=== PATIENT | female | born 1950 | race Caucasian/White ===

== ENCOUNTER 2022-01-09 17:37 | Emergency (ER) | payer OTHER ==
[~2022-01-09] VITALS: Ht 160 cm; Wt 63.5 kg
[~2022-01-09 17:37] MED LIST: ALBMDI INH; LEVO500T20 PO
[2022-01-09 18:06] VITALS: BP_SYST 123
[2022-01-09 18:55] LABS: BASOPHILS # (AUTO) 0.2 K/uL (0.0-0.2); BASOPHILS % (AUTO) 1.1 % (0.0-2.0); EOSINOPHILS # (AUTO) 0.2 K/uL (0.0-0.4); EOSINOPHILS % (AUTO) 1.5 % (0.0-4.0); HEMATOCRIT 23.9 % (36-48); HEMOGLOBIN 7.6 g/dL (12.0-16.0); LYMPHOCYTES # (AUTO) 3.3 K/uL (1.0-5.5); LYMPHOCYTES % (AUTO) 23.2 % (20.5-51.5); MEAN CORPUSCULAR HEMOGLOBIN 26 pg (27-31); MEAN CORPUSCULAR HGB CONC 32 % (32-36); MEAN CORPUSCULAR VOLUME 82 fL (79.0-98.0); MONOCYTES # (AUTO) 0.7 K/uL (0.0-1.0); MONOCYTES % (AUTO) 4.7 % (1.7-9.3); NEUTROPHILS # (AUTO) 9.8 K/uL (1.8-7.7); NEUTROPHILS % (AUTO) 69.5 % (40.0-70.0); PLATELET COUNT (AUTO) 313 K/uL (130-430); RED BLOOD CELL COUNT(AUTO) 2.92 MIL/uL (4.2-6.2); RED CELL DISTRIBUTION WIDTH 14.2 % (9.0-15.0); WHITE BLOOD COUNT (AUTO) 14.1 K/uL (4.8-10.8)
[2022-01-09 19:22] LABS: ANION GAP 11 (5-15); CALCIUM 9.3 mg/dL (8.4-11.0); CHLORIDE 98 mmol/L (98-107); CREATININE 1.38 mg/dL (0.55-1.30); GLUCOSE 191 mg/dL (70-99); POTASSIUM 4.9 mmol/L (3.5-5.1); SODIUM SERUM 136 mmol/L (136-145); UREA NITROGEN, BLOOD 43 mg/dL (8-21)
[2022-01-09 19:37] LABS: ALANINE AMINOTRANSFERASE 12 U/L (12-78); ALBUMIN 3.1 g/dL (3.4-4.8); ASPARTATE AMINOTRANSFERASE 20 U/L (10-37); TOTAL BILIRUBIN 0.4 mg/dL (0.0-1.0)
--- NOTE | 2022-01-09 20:15 | NUR ---
PT PLACED ON [employer]OUS [employer]CTION [employer]IST; HERE FOR GENERALIZED WEAKNESS X3 DAYS. LABS DRAWN. LACTIC 4.3; MD AWARE. NEW ORDERS GIVEN AND CARRIED OUT. VSS WCTM
[2022-01-09] MEDS ORDERED: NACL 0.9% 1,000 ML IV ONE (20:30)
--- NOTE | 2022-01-09 20:35 | NUR ---
Dr. Jauregui at bedside.
[2022-01-09 20:45] LABS: ACETONE, SERUM NEGATIVE (NEGATIVE)
[2022-01-09 20:50] LABS: BILIRUBIN,URINE NEGATIVE (NEGATIVE); BLOOD, URINE NEGATIVE (NEGATIVE); CLARITY/URINE CLEAR (CLEAR); COLOR,URINE YELLOW (YELLOW); GLUCOSE,URINE 3+ (NEGATIVE); KETONES,URINE NEGATIVE (NEGATIVE); LEUKOCYTE ESTERASE ,URINE 1+ (NEGATIVE); NITRITE, URINE NEGATIVE (NEGATIVE); PROTEIN URINE NEGATIVE (NEGATIVE); UROBILINOGEN,URINE 0.2 (0.2-1.0)
[2022-01-09] MEDS ORDERED: NITR-85 PO (21:06)
[2022-01-09] MEDS ORDERED: cefTRIAXone 1 GM in D5W 50 ML IV ONE (21:15)
[2022-01-09 21:16] LABS: BACTERIA,URINE MODERATE /HPF (None Seen); RBC,URINE 0-3 /HPF (0-3)
[2022-01-09] MEDS ORDERED: cefTRIAXone 1 GM VIAL ONE (21:27)
[2022-01-09] MEDS ORDERED: FERR236T3 PO (21:46)
--- NOTE | 2022-01-09 21:57 | NUR ---
abx infusing. blood cultures collected prior
[2022-01-09 23:00] VITALS: BP_SYST 130
--- NOTE | 2022-01-09 23:00 | NUR ---
Patient given written and verbal discharge instructions and verbalizes understanding. ER MD discussed with patient the results and treatment provided. Patient in stable condition. ID arm band removed. IV catheter removed intact and dressing applied, no active bleeding. Rx of Macrobid and Ferrous Gluconate given. Patient educated on pain management and to follow up with PMD. Pain Scale 0/10. Opportunity for questions provided and answered. Medication side effect fact sheet provided.
--- NOTE | 2022-01-09 23:22 | NUR ---
Patient given written and verbal discharge instructions and verbalizes understanding. ER MD discussed with patient the results and treatment provided. Patient in stable condition. ID arm band removed. IV catheter removed intact and dressing applied, no active bleeding. Rx of iron given. Patient educated on pain management and to follow up with PMD. Pain Scale 0. Opportunity for questions provided and answered. Medication side effect fact sheet provided.
[2022-01-12] MEDS ORDERED: SIMV-343 PO (12:50)
[2022-01-14] MEDS ORDERED: LEVO-62 PO (10:07)
== END 2022-01-09 23:22 | disposition home or self-care (01) ==
LOC: SED 17:37
DX: R53.1 Weakness (principal); N39.0 Urinary tract infection, site not specified; R42 Dizziness and giddiness; R51.9 Headache, unspecified; E11.9 Type 2 diabetes mellitus without complications; I10 Essential (primary) hypertension; Z79.899 Other long term (current) drug therapy
CPT/HCPCS: 99285; 96365; 70450; 71045; 96361; 80053; 81000; 82009; 82550; 82962; 85025; 87040; 87086; 36415; 93005; 76376; 83605; J0696; J7030

== ENCOUNTER 2022-01-11 13:16 | Inpatient (IN) | payer OTHER ==
[~2022-01-11] VITALS: Ht 160 cm; Wt 64.4 kg
[~2022-01-11 13:16] MED LIST changes: +FERR236T3 PO; +NITR-85 PO
[2022-01-11 13:39] VITALS: BP_SYST 132
[2022-01-11 14:38] LABS: BASOPHILS # (AUTO) 0.1 K/uL (0.0-0.2); BASOPHILS % (AUTO) 0.9 % (0.0-2.0); EOSINOPHILS # (AUTO) 0.1 K/uL (0.0-0.4); MONOCYTES # (AUTO) 0.4 K/uL (0.0-1.0)
[2022-01-11 14:45] LABS: ANION GAP 10 (5-15); CALCIUM 9.3 mg/dL (8.4-11.0); CHLORIDE 107 mmol/L (98-107); CREATININE 1.26 mg/dL (0.55-1.30); GLUCOSE 172 mg/dL (70-99); SODIUM SERUM 139 mmol/L (136-145); UREA NITROGEN, BLOOD 26 mg/dL (8-21)
[2022-01-11 14:50] LABS: ALANINE AMINOTRANSFERASE 13 U/L (12-78); ALBUMIN 3.1 g/dL (3.4-4.8); ASPARTATE AMINOTRANSFERASE 29 U/L (10-37); EOSINOPHILS % (AUTO) 1.5 % (0.0-4.0); LYMPHOCYTES % (AUTO) 24.2 % (20.5-51.5); MEAN CORPUSCULAR HEMOGLOBIN 26 pg (27-31); MEAN CORPUSCULAR HGB CONC 32 % (32-36); MEAN CORPUSCULAR VOLUME 82 fL (79.0-98.0); MONOCYTES % (AUTO) 5.2 % (1.7-9.3); NEUTROPHILS # (AUTO) 5.5 K/uL (1.8-7.7); NEUTROPHILS % (AUTO) 68.2 % (40.0-70.0); PLATELET COUNT (AUTO) 240 K/uL (130-430); RED BLOOD CELL COUNT(AUTO) 2.52 MIL/uL (4.2-6.2); RED CELL DISTRIBUTION WIDTH 13.9 % (9.0-15.0); TOTAL BILIRUBIN 0.2 mg/dL (0.0-1.0); WHITE BLOOD COUNT (AUTO) 8.1 K/uL (4.8-10.8)
[2022-01-11 14:55] LABS: HEMATOCRIT 20.7 % (36-48); HEMOGLOBIN 6.6 g/dL (12.0-16.0)
[2022-01-11 15:09] LABS: INR 1.1 (0.8-1.2); PROTHROMBIN TIME 11.6 SECS (9.5-12.5)
[2022-01-11] MEDS ORDERED: D5/0.45 NS 1,000 ML IV ONE (15:45)
[2022-01-11 17:54] VITALS: BP_SYST 159
[2022-01-11] MEDS: PANTOPRAZOLE SODIUM 40 MG TAB PO SCH (21:00)
[2022-01-11 21:42] VITALS: BP_SYST 140
[2022-01-11 23:37] VITALS: BP_SYST 140
[2022-01-12 00:21] VITALS: BP_SYST 157
[2022-01-12 08:00] VITALS: BP_SYST 140
[2022-01-12] MEDS: PANTOPRAZOLE SODIUM 40 MG TAB PO SCH ×2 (08:05→21:38)
[2022-01-12] MEDS ORDERED: MAGNESIUM CITRATE 300 ML ORAL SOLUTION PO ONE (09:45)
[2022-01-12] MEDS ORDERED: ALBUTEROL MDI INHALATION 8 GM INH INH PRN (10:30)
[2022-01-12] MEDS ORDERED: ONDANSETRON HCL 4 MG/2 ML VIAL IVP PRN (10:30)
[2022-01-12] MEDS ORDERED: FOLIC ACID 1 MG TABLET PO ONE (11:15)
[2022-01-12] MEDS ORDERED: ALBUTEROL SULFATE 0.083% 2.5 MG/3 ML VIAL.NEB INH PRN (11:45)
[2022-01-12 12:00] VITALS: BP_SYST 134
[2022-01-12] MEDS ORDERED: CANAGLIFLOZIN 300 MG PO SCH (12:45)
[2022-01-12] MEDS ORDERED: glipiZIDE XL 2.5 MG/TAB (GLUCOTROL XL) PO SCH (12:45)
[2022-01-12] MEDS ORDERED: CANA300T PO (12:50)
[2022-01-12] MEDS ORDERED: RIVA20TA PO (12:50)
[2022-01-12] MEDS ORDERED: DULA1.5P SQ (12:50)
[2022-01-12] MEDS ORDERED: GLIP2.5T3 PO (12:50)
[2022-01-12] MEDS ORDERED: LOSA100T3 PO (12:50)
[2022-01-12] MEDS ORDERED: FERR236T3 PO (12:50)
[2022-01-12] MEDS ORDERED: FENO160 PO (12:50)
[2022-01-12] MEDS ORDERED: NITR100C PO (12:50)
[2022-01-12] MEDS ORDERED: METF-518 PO (12:50)
[2022-01-12] MEDS ORDERED: FURO-150 PO (12:50)
[2022-01-12] MEDS ORDERED: VITD400 PO (12:50)
[2022-01-12] MEDS ORDERED: DILT120C89 PO (12:50)
[2022-01-12] MEDS ORDERED: COR25 PO (12:50)
[2022-01-12] MEDS ORDERED: INSU100V9 SQ (12:50)
[2022-01-12] MEDS ORDERED: SIMV20TA2 PO (12:50)
[2022-01-12] MEDS ORDERED: OMEG-135 PO (12:50)
[2022-01-12 13:31] LABS: TOTAL IRON BIND. CAPACITY 648 ug/dL (250-450)
[2022-01-12] MEDS ORDERED: FUROSEMIDE 20 MG TABLET PO ONE (13:45)
[2022-01-12] MEDS ORDERED: CARVEDILOL 25 MG TABLET (COREG) PO ONE (13:45)
[2022-01-12] MEDS ORDERED: CHOLECALCIFEROL (VITAMIN D-3) 400 UNIT TABLET PO ONE (13:45)
[2022-01-12] MEDS ORDERED: LOSARTAN POTASSIUM 50 MG TABLET (COZAAR) PO ONE (14:00)
[2022-01-12] MEDS ORDERED: FENOFIBRATE 160 MG TABLET PO ONE (14:15)
[2022-01-12] MEDS ORDERED: glipiZIDE XL 5 MG TAB ( GLUCOTROL XL) PO ONE (14:30)
[2022-01-12] MEDS ORDERED: DILTIAZEM HCL 120 MG CAP.SR.24H PO ONE (14:30)
[2022-01-12 16:00] VITALS: BP_SYST 154
[2022-01-12] MEDS ORDERED: BISACODYL 5 MG TABLET.DR (DULCOLAX) PO ONE (17:00)
[2022-01-12] MEDS ORDERED: GOLYTELY / COLYTE SOLUTION 4 LITERS PO ONE (18:00)
[2022-01-12 20:23] VITALS: BP_SYST 168
[2022-01-12 20:55] LABS: BASOPHILS # (AUTO) 0.1 K/uL (0.0-0.2); EOSINOPHILS # (AUTO) 0.3 K/uL (0.0-0.4); EOSINOPHILS % (AUTO) 2.6 % (0.0-4.0); HEMATOCRIT 36.2 % (36-48); HEMOGLOBIN 11.9 g/dL (12.0-16.0); LYMPHOCYTES % (AUTO) 17.2 % (20.5-51.5); MEAN CORPUSCULAR HEMOGLOBIN 28 pg (27-31); MEAN CORPUSCULAR HGB CONC 33 % (32-36); MEAN CORPUSCULAR VOLUME 85 fL (79.0-98.0); MONOCYTES # (AUTO) 0.7 K/uL (0.0-1.0); MONOCYTES % (AUTO) 5.9 % (1.7-9.3); NEUTROPHILS # (AUTO) 8.4 K/uL (1.8-7.7); NEUTROPHILS % (AUTO) 73.3 % (40.0-70.0); PLATELET COUNT (AUTO) 292 K/uL (130-430); RED BLOOD CELL COUNT(AUTO) 4.28 MIL/uL (4.2-6.2); RED CELL DISTRIBUTION WIDTH 15.6 % (9.0-15.0); WHITE BLOOD COUNT (AUTO) 11.5 K/uL (4.8-10.8)
[2022-01-12] MEDS: NITROFURANTOIN MONOHYD/M-CRYST 100 MG CAPSULE (MacroBID) PO SCH (21:37)
[2022-01-12] MEDS: glipiZIDE XL 5 MG TAB ( GLUCOTROL XL) PO SCH (21:38)
[2022-01-12] MEDS: SIMVASTATIN 20 MG TABLET PO SCH (21:39)
[2022-01-12] MEDS: CARVEDILOL 25 MG TABLET (COREG) PO SCH (21:39)
[2022-01-12] MEDS: INSULIN GLARGINE 100 UNITS/ML 10 ML VIAL SQ SCH (21:40)
[2022-01-13 00:31] VITALS: BP_SYST 143
[2022-01-13 07:07] LABS: FOLATE (FOLIC ACID) 8.9 ng/mL (>3.0)
[2022-01-13 07:28] LABS: BASOPHILS # (AUTO) 0.1 K/uL (0.0-0.2); EOSINOPHILS # (AUTO) 0.2 K/uL (0.0-0.4); EOSINOPHILS % (AUTO) 2.1 % (0.0-4.0); HEMATOCRIT 33.2 % (36-48); HEMOGLOBIN 10.9 g/dL (12.0-16.0); LYMPHOCYTES # (AUTO) 2.7 K/uL (1.0-5.5); LYMPHOCYTES % (AUTO) 26.8 % (20.5-51.5); MEAN CORPUSCULAR HEMOGLOBIN 28 pg (27-31); MEAN CORPUSCULAR HGB CONC 33 % (32-36); MEAN CORPUSCULAR VOLUME 86 fL (79.0-98.0); MONOCYTES # (AUTO) 0.6 K/uL (0.0-1.0); MONOCYTES % (AUTO) 5.5 % (1.7-9.3); NEUTROPHILS # (AUTO) 6.5 K/uL (1.8-7.7); NEUTROPHILS % (AUTO) 64.6 % (40.0-70.0); PLATELET COUNT (AUTO) 300 K/uL (130-430); RED BLOOD CELL COUNT(AUTO) 3.88 MIL/uL (4.2-6.2); RED CELL DISTRIBUTION WIDTH 15.7 % (9.0-15.0); WHITE BLOOD COUNT (AUTO) 10.1 K/uL (4.8-10.8)
[2022-01-13 07:41] LABS: INR 1.1 (0.8-1.2); PROTHROMBIN TIME 11.5 SECS (9.5-12.5)
[2022-01-13 08:00] VITALS: BP_SYST 150
[2022-01-13 08:33] LABS: ALANINE AMINOTRANSFERASE 26 U/L (12-78); ALBUMIN 3.3 g/dL (3.4-4.8); ANION GAP 8 (5-15); ASPARTATE AMINOTRANSFERASE 41 U/L (10-37); CALCIUM 8.9 mg/dL (8.4-11.0); CHLORIDE 104 mmol/L (98-107); CREATININE 1.17 mg/dL (0.55-1.30); GLUCOSE 74 mg/dL (70-99); SODIUM SERUM 142 mmol/L (136-145); TOTAL BILIRUBIN 0.5 mg/dL (0.0-1.0); UREA NITROGEN, BLOOD 14 mg/dL (8-21)
[2022-01-13] MEDS: NITROFURANTOIN MONOHYD/M-CRYST 100 MG CAPSULE (MacroBID) PO SCH (08:33)
[2022-01-13] MEDS: DILTIAZEM HCL 120 MG CAP.SR.24H PO SCH (08:34)
[2022-01-13] MEDS: levoFLOXacin 500 MG TABLET PO SCH (08:34)
[2022-01-13] MEDS: PANTOPRAZOLE SODIUM 40 MG TAB PO SCH ×2 (08:35→19:57)
[2022-01-13] MEDS: FOLIC ACID 1 MG TABLET PO SCH (08:35)
[2022-01-13] MEDS: CHOLECALCIFEROL (VITAMIN D-3) 400 UNIT TABLET PO SCH (08:35)
[2022-01-13] MEDS: FENOFIBRATE 160 MG TABLET PO SCH (08:35)
[2022-01-13] MEDS: LOSARTAN POTASSIUM 50 MG TABLET (COZAAR) PO SCH (08:36)
[2022-01-13] MEDS: CARVEDILOL 25 MG TABLET (COREG) PO SCH ×2 (08:36→19:57)
[2022-01-13] MEDS: FUROSEMIDE 20 MG TABLET PO SCH (08:37)
[2022-01-13] MEDS: glipiZIDE XL 5 MG TAB ( GLUCOTROL XL) PO SCH ×2 (08:37→19:57)
[2022-01-13] MEDS ORDERED: FERROUS GLUCONATE 236 MG PO SCH (09:00)
[2022-01-13 11:31] VITALS: BP_SYST 138
[2022-01-13 12:00] VITALS: BP_SYST 140
[2022-01-13] MEDS: SOD FERRIC GLUC COMPLEX/SUC 125 MG in NS 100 ML IV SCH (14:23)
[2022-01-13] MEDS ORDERED: fentaNYL CITRATE/PF 100 MCG/2 ML AMP ONE (15:59)
[2022-01-13] MEDS: MIDAZOLAM HCL 5 MG/5 ML VIAL ONE ×3 (16:08→16:18)
[2022-01-13] MEDS: MEPERIDINE 100 MG INJ. 100 MG/ML VIAL ONE ×2 (16:08→16:12)
[2022-01-13] MEDS: SIMVASTATIN 20 MG TABLET PO SCH (19:57)
[2022-01-13 20:00] VITALS: BP_SYST 125
[2022-01-13] MEDS: INSULIN GLARGINE 100 UNITS/ML 10 ML VIAL SQ SCH (21:00)
[2022-01-14 06:47] LABS: BASOPHILS # (AUTO) 0.1 K/uL (0.0-0.2); BASOPHILS % (AUTO) 0.7 % (0.0-2.0); EOSINOPHILS # (AUTO) 0.2 K/uL (0.0-0.4); EOSINOPHILS % (AUTO) 2.3 % (0.0-4.0); HEMATOCRIT 30.2 % (36-48); HEMOGLOBIN 10.1 g/dL (12.0-16.0); LYMPHOCYTES % (AUTO) 26.6 % (20.5-51.5); MEAN CORPUSCULAR HEMOGLOBIN 28 pg (27-31); MEAN CORPUSCULAR HGB CONC 33 % (32-36); MEAN CORPUSCULAR VOLUME 85 fL (79.0-98.0); MONOCYTES # (AUTO) 0.5 K/uL (0.0-1.0); NEUTROPHILS # (AUTO) 4.7 K/uL (1.8-7.7); NEUTROPHILS % (AUTO) 63.4 % (40.0-70.0); PLATELET COUNT (AUTO) 218 K/uL (130-430); RED BLOOD CELL COUNT(AUTO) 3.57 MIL/uL (4.2-6.2); RED CELL DISTRIBUTION WIDTH 15.4 % (9.0-15.0); WHITE BLOOD COUNT (AUTO) 7.4 K/uL (4.8-10.8)
[2022-01-14 06:59] LABS: ANION GAP 7 (5-15); CALCIUM 8.4 mg/dL (8.4-11.0); CHLORIDE 105 mmol/L (98-107); CREATININE 1.25 mg/dL (0.55-1.30); GLUCOSE 70 mg/dL (70-99); POTASSIUM 3.6 mmol/L (3.5-5.1); SODIUM SERUM 139 mmol/L (136-145); UREA NITROGEN, BLOOD 15 mg/dL (8-21)
[2022-01-14 08:00] VITALS: BP_SYST 131
[2022-01-14] MEDS: LOSARTAN POTASSIUM 50 MG TABLET (COZAAR) PO SCH ×2 (09:00→09:35)
[2022-01-14] MEDS: DILTIAZEM HCL 120 MG CAP.SR.24H PO SCH (09:31)
[2022-01-14] MEDS: glipiZIDE XL 5 MG TAB ( GLUCOTROL XL) PO SCH (09:32)
[2022-01-14] MEDS: FUROSEMIDE 20 MG TABLET PO SCH (09:33)
[2022-01-14] MEDS: FOLIC ACID 1 MG TABLET PO SCH (09:33)
[2022-01-14] MEDS: FENOFIBRATE 160 MG TABLET PO SCH (09:33)
[2022-01-14] MEDS: CHOLECALCIFEROL (VITAMIN D-3) 400 UNIT TABLET PO SCH (09:33)
[2022-01-14] MEDS: levoFLOXacin 500 MG TABLET PO SCH (09:34)
[2022-01-14] MEDS: CARVEDILOL 25 MG TABLET (COREG) PO SCH (09:34)
[2022-01-14] MEDS: PANTOPRAZOLE SODIUM 40 MG TAB PO SCH (09:35)
[2022-01-14] MEDS ORDERED: FERR236T3 PO (10:07)
[2022-01-14] MEDS ORDERED: LEVO500T90 PO (10:07)
[2022-01-14] MEDS ORDERED: PRO40 PO (10:07)
[2022-01-14] MEDS ORDERED: FOLI-43 PO (10:07)
[2022-01-14 12:01] VITALS: BP_SYST 134
[2022-01-14] MEDS: SOD FERRIC GLUC COMPLEX/SUC 125 MG in NS 100 ML IV SCH (13:44)
[2022-01-14 15:11] VITALS: BP_SYST 124
== END 2022-01-14 15:40 | disposition home health service (06) | DRG 378 ==
LOC: SED 13:16 → SMU 15:41
PROVIDERS: ADMIT Preventive Medicine Preventive Medicine/Occupational Environmental Medicine; ATTEND Preventive Medicine Preventive Medicine/Occupational Environmental Medicine
PROC: 30233N1 Transfusion of Nonautologous Red Blood Cells into Peripheral Vein, Percutaneous Approach (ICD-10-PCS; principal; 2022-01-11)
PROC: 0DBK8ZZ Excision of Ascending Colon, Via Natural or Artificial Opening Endoscopic (ICD-10-PCS; 2022-01-13)
PROC: 0DBM8ZZ Excision of Descending Colon, Via Natural or Artificial Opening Endoscopic (ICD-10-PCS; 2022-01-13)
DX: K92.2 Gastrointestinal hemorrhage, unspecified (principal); E44.0 Moderate protein-calorie malnutrition; K63.5 Polyp of colon; D64.9 Anemia, unspecified; K74.60 Unspecified cirrhosis of liver; R79.89 Other specified abnormal findings of blood chemistry; E88.09 Other disorders of plasma-protein metabolism, not elsewhere classified; J45.909 Unspecified asthma, uncomplicated; I12.9 Hypertensive chronic kidney disease with stage 1 through stage 4 chronic kidney disease, or unspecified chronic kidney disease; E11.22 Type 2 diabetes mellitus with diabetic chronic kidney disease; N18.30 Chronic kidney disease, stage 3 unspecified; I25.10 Atherosclerotic heart disease of native coronary artery without angina pectoris; Z20.822 Contact with and (suspected) exposure to COVID-19; I48.91 Unspecified atrial fibrillation; K59.09 Other constipation; K75.81 Nonalcoholic steatohepatitis (NASH); K64.9 Unspecified hemorrhoids; E11.65 Type 2 diabetes mellitus with hyperglycemia; Z95.1 Presence of aortocoronary bypass graft; Z95.0 Presence of cardiac pacemaker; T45.515A Adverse effect of anticoagulants, initial encounter
CPT/HCPCS: 36415; 36430; 45385; 76700-TC; 80048; 80053; 82607; 82728; 82746; 82962; 83540; 83550; 85025; 85044; 85610-TC; 85730-TC; 86886; 86900; 86901; 86920; 88305; 99285; J1815; J2175; J2250; J2916; J3010; P9021

== ENCOUNTER 2023-09-06 10:29 | Inpatient (IN) | payer OTHER ==
[~2023-09-06] VITALS: Ht 157.5 cm; Wt 60.6 kg
[2023-09-06] VITALS (8 sets, daily range): BP systolic 158–177; PULSE 64–83; RESP 20–21; TEMP 97.6–97.9; O2SAT 91–97
[~2023-09-06 10:29] MED LIST changes: -ALBMDI INH; +CANA300T PO; +COR25 PO; +DILT120C89 PO; +DULA1.5P SQ; +FENO160 PO; +FOLI-43 PO; +FURO-150 PO; +GLIP2.5T3 PO; +INSU100V9 SQ; +LEVO-62 PO; -LEVO500T20 PO; +LOSA-415 PO; +METF-518 PO; -NITR-85 PO; +OMEG-135 PO; +PRO40 PO; +RIVA20TA PO; +SIMV-343 PO; +VITD400 PO
[2023-09-06 11:04] LABS: BASOPHILS # (AUTO) 0.1 K/uL (0.0-0.2); BASOPHILS % (AUTO) 0.8 % (0.0-2.0); EOSINOPHILS # (AUTO) 0.2 K/uL (0.0-0.4); EOSINOPHILS % (AUTO) 1.6 % (0.0-4.0); HEMATOCRIT 35.5 % (36-48); HEMOGLOBIN 11.5 g/dL (12.0-16.0); LYMPHOCYTES # (AUTO) 1.4 K/uL (1.0-5.5); LYMPHOCYTES % (AUTO) 11.6 % (20.5-51.5); MEAN CORPUSCULAR HEMOGLOBIN 29 pg (27-31); MEAN CORPUSCULAR HGB CONC 33 % (32-36); MEAN CORPUSCULAR VOLUME 89 fL (79.0-98.0); MONOCYTES # (AUTO) 0.5 K/uL (0.0-1.0); MONOCYTES % (AUTO) 4.4 % (1.7-9.3); NEUTROPHILS # (AUTO) 10.1 K/uL (1.8-7.7); NEUTROPHILS % (AUTO) 81.6 % (40.0-70.0); PLATELET COUNT (AUTO) 211 K/uL (130-430); RED CELL DISTRIBUTION WIDTH 14.3 % (9.0-15.0); WHITE BLOOD COUNT (AUTO) 12.3 K/uL (4.8-10.8)
[2023-09-06 11:16] LABS: INR 1.3 (0.8-1.2); PROTHROMBIN TIME 13.2 SECS (9.5-12.5)
[2023-09-06 11:30] LABS: ALBUMIN 3.3 g/dL (3.4-4.8); ANION GAP 3 (5-15); ASPARTATE AMINOTRANSFERASE 28 U/L (10-37); BILIRUBIN,DIRECT 0.3 mg/dL (0.0-0.3); CALCIUM 9.6 mg/dL (8.4-11.0); CARBON DIOXIDE 26 mmol/L (23-29); CHLORIDE 105 mmol/L (98-107); CREATINE KINASE, TOTAL 51 U/L (26-192); CREATININE 1.09 mg/dL (0.55-1.30); GLUCOSE 201 mg/dL (74-106); POTASSIUM 4.2 mmol/L (3.5-5.1); SODIUM SERUM 134 mmol/L (136-145); TOTAL BILIRUBIN 1.2 mg/dL (0.0-1.0); UREA NITROGEN, BLOOD 27 mg/dL (8-21)
[2023-09-06] MEDS ORDERED: INSU10VI2 (11:47)
[2023-09-06] MEDS ORDERED: APIX2.5T PO (11:48)
[2023-09-06] MEDS ORDERED: CYAN250010 PO (11:48)
[2023-09-06 12:13] LABS: ALANINE AMINOTRANSFERASE 22 U/L (12-78)
[2023-09-06] MEDS ORDERED: HYDROcodone/ACETAMIN 5-325 MG TAB (NORCO/ VICODIN) PO PRN (12:15)
[2023-09-06] MEDS ORDERED: ACETAMINOPHEN 325 MG TABLET PO PRN ×2 (12:15→12:30)
[2023-09-06] MEDS ORDERED: MORPHINE 2 MG/ML INJ. SYRINGE IVP PRN (12:15)
[2023-09-06] MEDS ORDERED: ONDANSETRON HCL 4 MG/2 ML VIAL IVP PRN (12:15)
[2023-09-06] MEDS ORDERED: HYDROcodone/ACETAMIN 10-325 MG TAB PO PRN (12:15)
[2023-09-06] MEDS: FUROSEMIDE 40 MG/4 ML VIAL IVP ONE (12:24)
[2023-09-06] MEDS ORDERED: DEXTROSE 50% JECT 50 ML DISP.SYRIN IVP PRN (12:30)
[2023-09-06] MEDS ORDERED: GLUCOSE (DEXTROSE) ORAL GEL -Adults PO PRN (12:30)
[2023-09-06] MEDS: APIXABAN 2.5 MG TABLET PO ONE (13:15)
[2023-09-06] MEDS: CARVEDILOL 25 MG TABLET (COREG) PO ONE (13:15)
[2023-09-06] MEDS: cefTRIAXone 1 GM IVPB PREMIX 50 ML IV ONE (14:10)
[2023-09-06] MEDS: IPRATROPIUM BROM 0.5 MG/2.5 ML VIAL.NEB (ATROVENT) INH SCH (14:59)
[2023-09-06] MEDS ORDERED: hydrALAZINE HCL 20 MG/ML VIAL IVP PRN (15:00)
[2023-09-06] MEDS: AZITHROMYCIN 500 MG in NS 250 ML IV ONE (15:00)
[2023-09-06] MEDS: LOSARTAN POTASSIUM 50 MG TABLET (COZAAR) PO ONE (15:30)
[2023-09-06] MEDS ORDERED: INSULIN REGULAR, HUMAN 10 UNITS/0.1 ML, 3 ML VIAL ONE (17:45)
[2023-09-06] MEDS: INSULIN REGULAR, HUMAN 100 UNITS/ML, 3 ML VIAL (humuLIN R) SUBCUT PRN (17:45)
[2023-09-06] MEDS: APIXABAN 2.5 MG TABLET PO SCH (23:17)
[2023-09-06] MEDS: SIMVASTATIN 20 MG TABLET PO SCH (23:18)
[2023-09-06] MEDS: CARVEDILOL 25 MG TABLET (COREG) PO SCH (23:19)
[2023-09-06] MEDS: FUROSEMIDE 40 MG/4 ML VIAL IVP SCH (23:19)
[2023-09-07] VITALS (13 sets, daily range): BP systolic 140–176; PULSE 69–71; RESP 16–20; TEMP 97.2–99; O2SAT 92–98
[2023-09-07 05:36] LABS: BASOPHILS # (AUTO) 0.1 K/uL (0.0-0.2); BASOPHILS % (AUTO) 0.9 % (0.0-2.0); EOSINOPHILS # (AUTO) 0.1 K/uL (0.0-0.4); EOSINOPHILS % (AUTO) 1.5 % (0.0-4.0); HEMATOCRIT 30.1 % (36-48); LYMPHOCYTES # (AUTO) 1.5 K/uL (1.0-5.5); LYMPHOCYTES % (AUTO) 16.5 % (20.5-51.5); MEAN CORPUSCULAR HEMOGLOBIN 29 pg (27-31); MEAN CORPUSCULAR HGB CONC 33 % (32-36); MEAN CORPUSCULAR VOLUME 88 fL (79.0-98.0); MONOCYTES # (AUTO) 0.5 K/uL (0.0-1.0); MONOCYTES % (AUTO) 5.8 % (1.7-9.3); NEUTROPHILS # (AUTO) 6.8 K/uL (1.8-7.7); NEUTROPHILS % (AUTO) 75.3 % (40.0-70.0); PLATELET COUNT (AUTO) 168 K/uL (130-430); RED BLOOD CELL COUNT(AUTO) 3.43 MIL/uL (4.2-6.2); RED CELL DISTRIBUTION WIDTH 14.4 % (9.0-15.0)
[2023-09-07 06:12] LABS: ALANINE AMINOTRANSFERASE 15 U/L (12-78); ANION GAP 9 (5-15); ASPARTATE AMINOTRANSFERASE 20 U/L (10-37); CARBON DIOXIDE 28 mmol/L (23-29); CHLORIDE 105 mmol/L (98-107); CREATININE 1.36 mg/dL (0.55-1.30); GLUCOSE 186 mg/dL (74-106); POTASSIUM 3.8 mmol/L (3.5-5.1); SODIUM SERUM 142 mmol/L (136-145); TOTAL BILIRUBIN 0.9 mg/dL (0.0-1.0); TOTAL PROTEIN, SERUM 7.3 g/dL (6.4-8.3); UREA NITROGEN, BLOOD 30 mg/dL (8-21)
[2023-09-07] MEDS: LOSARTAN POTASSIUM 50 MG TABLET (COZAAR) PO SCH (09:11)
[2023-09-07] MEDS: cefTRIAXone 1 GM IVPB PREMIX 50 ML IV SCH (12:17)
[2023-09-07] MEDS: AZITHROMYCIN 500 MG in NS 250 ML IV SCH (12:39)
[2023-09-07] MEDS: SILDENAFIL CITRATE 20 MG TABLET PO ONE (14:25)
[2023-09-07] MEDS: SILDENAFIL CITRATE 20 MG TABLET PO SCH (16:48)
[2023-09-08] VITALS (13 sets, daily range): BP systolic 124–145; PULSE 68–77; RESP 16–18; TEMP 97.6–98.2; O2SAT 90–96
[2023-09-08 03:47] LABS: BASOPHILS # (AUTO) 0.1 K/uL (0.0-0.2); BASOPHILS % (AUTO) 0.8 % (0.0-2.0); EOSINOPHILS # (AUTO) 0.2 K/uL (0.0-0.4); EOSINOPHILS % (AUTO) 1.8 % (0.0-4.0); HEMATOCRIT 29.5 % (36-48); HEMOGLOBIN 9.9 g/dL (12.0-16.0); LYMPHOCYTES % (AUTO) 23.3 % (20.5-51.5); MEAN CORPUSCULAR HEMOGLOBIN 29 pg (27-31); MEAN CORPUSCULAR HGB CONC 34 % (32-36); MEAN CORPUSCULAR VOLUME 87 fL (79.0-98.0); MONOCYTES # (AUTO) 0.7 K/uL (0.0-1.0); MONOCYTES % (AUTO) 7.5 % (1.7-9.3); NEUTROPHILS # (AUTO) 5.8 K/uL (1.8-7.7); NEUTROPHILS % (AUTO) 66.6 % (40.0-70.0); PLATELET COUNT (AUTO) 170 K/uL (130-430); RED CELL DISTRIBUTION WIDTH 14.3 % (9.0-15.0); WHITE BLOOD COUNT (AUTO) 8.8 K/uL (4.8-10.8)
[2023-09-08 03:57] LABS: ANION GAP 8 (5-15); CALCIUM 8.9 mg/dL (8.4-11.0); CARBON DIOXIDE 30 mmol/L (23-29); CHLORIDE 101 mmol/L (98-107); CREATININE 1.25 mg/dL (0.55-1.30); GLUCOSE 175 mg/dL (74-106); POTASSIUM 3.5 mmol/L (3.5-5.1); SODIUM SERUM 139 mmol/L (136-145); UREA NITROGEN, BLOOD 32 mg/dL (8-21)
[2023-09-08] MEDS ORDERED: AUG875 PO (11:35)
[2023-09-08] MEDS ORDERED: FURO-150 PO (11:35)
[2023-09-08] MEDS ORDERED: SPIR25TA PO (11:39)
[2023-09-09] VITALS (9 sets, daily range): BP systolic 122–145; PULSE 70–107; RESP 16–18; TEMP 96.7–98.5; O2SAT 91–95
== END 2023-09-09 18:20 | disposition home or self-care (01) | DRG 193 ==
LOC: SED 10:29 → STU 12:11
PROVIDERS: ADMIT Family Medicine; ATTEND Family Medicine
DX: J18.9 Pneumonia, unspecified organism (principal); I50.31 Acute diastolic (congestive) heart failure; I13.0 Hypertensive heart and chronic kidney disease with heart failure and stage 1 through stage 4 chronic kidney disease, or unspecified chronic kidney disease; E87.1 Hypo-osmolality and hyponatremia; I48.20 Chronic atrial fibrillation, unspecified; K80.44 Calculus of bile duct with chronic cholecystitis without obstruction; R65.10 Systemic inflammatory response syndrome (SIRS) of non-infectious origin without acute organ dysfunction; M76.30 Iliotibial band syndrome, unspecified leg; I25.10 Atherosclerotic heart disease of native coronary artery without angina pectoris; E11.22 Type 2 diabetes mellitus with diabetic chronic kidney disease; I27.20 Pulmonary hypertension, unspecified; D64.9 Anemia, unspecified; K74.60 Unspecified cirrhosis of liver; I49.5 Sick sinus syndrome; N18.9 Chronic kidney disease, unspecified; Z95.1 Presence of aortocoronary bypass graft; Z87.891 Personal history of nicotine dependence; Z95.0 Presence of cardiac pacemaker; Z79.899 Other long term (current) drug therapy; R91.8 Other nonspecific abnormal finding of lung field
CPT/HCPCS: 36415; 71045; 71270; 76536; 76700; 80048; 80053; 80076; 82550; 82948; 83037; 83605; 83880; 84484; 85025; 85610; 85730; 87040; 93005; 93306; 94640; 94760; 97110-GP; 97112-GP; 97116-GP; 97530-GP; 99285; G0378; J0456; J0696; J1815; J1940; J1956; J7050; Q9967

== ENCOUNTER 2024-01-03 11:22 | Emergency (ER) | payer OTHER ==
[~2024-01-03] VITALS: Ht 157.5 cm; Wt 64.0 kg
[~2024-01-03 11:22] MED LIST changes: +APIX2.5T PO; +AUG875 PO; -CANA300T PO; +CYAN250010 PO; -FENO160 PO; -FOLI-43 PO; -GLIP2.5T3 PO; -INSU100V9 SQ; +INSU10VI2; -LEVO-62 PO; -PRO40 PO; -RIVA20TA PO; +SPIR25TA PO
[2024-01-03 11:24] VITALS: RESP 16; TEMP 97.7; O2SAT 96
[2024-01-03] MEDS: IPRATROPIUM/ALBUTEROL SULFATE 3 ML AMPUL.NEB (DUONEB) INH ONE (12:17)
[2024-01-03 12:39] LABS: BASOPHILS # (AUTO) 0.1 K/uL (0.0-0.2); BASOPHILS % (AUTO) 1.1 % (0.0-2.0); EOSINOPHILS # (AUTO) 0.2 K/uL (0.0-0.4); HEMATOCRIT 28.5 % (36-48); HEMOGLOBIN 9.4 g/dL (12.0-16.0); LYMPHOCYTES # (AUTO) 1.1 K/uL (1.0-5.5); LYMPHOCYTES % (AUTO) 13.9 % (20.5-51.5); MEAN CORPUSCULAR HEMOGLOBIN 30 pg (27-31); MEAN CORPUSCULAR HGB CONC 33 % (32-36); MEAN CORPUSCULAR VOLUME 91 fL (79.0-98.0); MONOCYTES # (AUTO) 0.5 K/uL (0.0-1.0); MONOCYTES % (AUTO) 5.9 % (1.7-9.3); NEUTROPHILS # (AUTO) 5.9 K/uL (1.8-7.7); NEUTROPHILS % (AUTO) 77.1 % (40.0-70.0); PLATELET COUNT (AUTO) 189 K/uL (130-430); RED BLOOD CELL COUNT(AUTO) 3.15 MIL/uL (4.2-6.2); RED CELL DISTRIBUTION WIDTH 13.9 % (9.0-15.0); WHITE BLOOD COUNT (AUTO) 7.7 K/uL (4.8-10.8)
[2024-01-03 13:00] LABS: ALANINE AMINOTRANSFERASE 23 U/L (12-78); ANION GAP 6 (5-15); ASPARTATE AMINOTRANSFERASE 30 U/L (10-37); CALCIUM 9.9 mg/dL (8.4-11.0); CARBON DIOXIDE 28 mmol/L (23-29); CHLORIDE 103 mmol/L (98-107); CREATININE 1.14 mg/dL (0.55-1.30); GLUCOSE 171 mg/dL (74-106); POTASSIUM 4.5 mmol/L (3.5-5.1); SODIUM SERUM 137 mmol/L (136-145); TOTAL BILIRUBIN 0.7 mg/dL (0.0-1.0); TOTAL PROTEIN, SERUM 7.1 g/dL (6.4-8.3); UREA NITROGEN, BLOOD 32 mg/dL (8-21)
[2024-01-03] MEDS: FUROSEMIDE 20 MG/2 ML VIAL IVP ONE (16:29)
[2024-01-03 17:03] VITALS: BP_SYST 157; PULSE 63; RESP 18; TEMP 97.8; O2SAT 93
== END 2024-01-03 17:01 | disposition home or self-care (01) ==
LOC: SED 11:22
DX: E11.22 Type 2 diabetes mellitus with diabetic chronic kidney disease (principal); I13.0 Hypertensive heart and chronic kidney disease with heart failure and stage 1 through stage 4 chronic kidney disease, or unspecified chronic kidney disease; N18.30 Chronic kidney disease, stage 3 unspecified; Z20.822 Contact with and (suspected) exposure to COVID-19; R06.00 Dyspnea, unspecified; E11.9 Type 2 diabetes mellitus without complications; Z79.899 Other long term (current) drug therapy; Z79.2 Long term (current) use of antibiotics
CPT/HCPCS: 36415; 71045; 80053; 83880; 84484; 85025; 93005; 94640; 94760; 96374; 99285; J1940